=== PATIENT | female | born 1990 | race Caucasian/White ===

== ENCOUNTER 2016-09-06 22:48 | Emergency (ER) | payer MEDICAID ==
[~2016-09-06] VITALS: Ht 162.6 cm; Wt 56.8 kg
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
[2016-09-06] MEDS ORDERED: HYDROmorphone 0.5 mg/0.5 mL iSecure Syringe IVPUSH PRN (22:55)
[2016-09-06] MEDS ORDERED: 0.9% Sodium Chloride 1,000 ML IV ONE (22:55)
[2016-09-06] MEDS ORDERED: Ondansetron 2 mg/mL 2 mL Inj IVPUSH PRN (22:55)
[2016-09-06 23:01] VITALS: BP 122/68; PULSE 114; RESP 20; O2SAT 100
[2016-09-06 23:09] LABS: BASOPHILS % (AUTO) 0.1 % (0-3); EOSINOPHILS % (AUTO) 1.6 % (0-5); MONOCYTES % (AUTO) 5.3 % (4-12); Mean Corpuscular Hemoglobin 31.6 pg (27.0-35.0); Mean Corpuscular Volume 90.9 fL (81-100); NEUTROPHILS % (AUTO) 51.7 % (40-74); Platelet Count 326 bil/L (150-400)
[2016-09-06 23:34] LABS: APPEARANCE,URINE HAZY (CLEAR,HAZY); COLOR,URINE YELLOW (YELLOW)
[2016-09-06 23:35] LABS: OCCULT BLOOD,URINE LARGE (NEGATIVE); UROBILINOGEN,URINE NORMAL (NORMAL)
[2016-09-07] MEDS ORDERED: oxyCODONE-Acetamin 5-325 mg Tablet PO ONE (01:10)
[2016-09-07] MEDS ORDERED: _oxyCODONE/APAP 5-325 mg Tablet PO PRN (01:10)
[2016-09-07] MEDS ORDERED: POTA20TA16 PO (01:15)
[2016-09-07] MEDS ORDERED: Potassium Chloride 20 mEq SR Tablet PO ONE (01:15)
[2016-09-07 02:00] VITALS: PULSE 100; RESP 18; O2SAT 100
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
[2016-09-08 08:07] LABS: Hepatitis A Antibody IgM Negative (Negative); Hepatitis B Core Antibody IgM Negative (Negative)
== END 2016-09-07 02:35 | disposition home or self-care (01) ==
LOC: SED 22:48
DX: S27.321A Contusion of lung, unilateral, initial encounter (principal); S70.01XA Contusion of right hip, initial encounter; S90.01XA Contusion of right ankle, initial encounter; V43.62XA Car passenger injured in collision with other type car in traffic accident, initial encounter; Y93.89 Activity, other specified; Y92.411 Interstate highway as the place of occurrence of the external cause; Y99.9 Unspecified external cause status; E27.9 Disorder of adrenal gland, unspecified; K75.9 Inflammatory liver disease, unspecified
CPT/HCPCS: 36415; 71010; 71260; 72170; 73610; 74177; 80053; 81001; 81025; 85025; 86705; 86709; 87340; 87341; 93005; 96374; 96375; 99285; G0472; G0480; J1170; J2405; J7030; Q9967